=== PATIENT | female | born 1990 | race American Indian/Alaskan Native ===

== ENCOUNTER 2018-08-01 10:06 | Emergency (ER) | payer SELFPAY ==
[2018-08-01 10:23] VITALS: BP 142/92
[2018-08-01] MEDS ORDERED: MOTRIN PO ONE (12:04)
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
== END 2018-08-01 13:14 | disposition left against medical advice (07) ==
LOC: ED 10:06
DX: S13.4XXA Sprain of ligaments of cervical spine, initial encounter (principal); R51 Headache; Z90.49 Acquired absence of other specified parts of digestive tract; V89.2XXA Person injured in unspecified motor-vehicle accident, traffic, initial encounter; Y93.89 Activity, other specified; Y99.8 Other external cause status; Y92.410 Unspecified street and highway as the place of occurrence of the external cause
CPT/HCPCS: 99282

== ENCOUNTER 2019-05-08 18:23 | Emergency (ER) | payer OTHER ==
[2019-05-08] MEDS ORDERED: REGLAN PO ONE (23:31)
[2019-05-08] MEDS ORDERED: BENADRYL PO ONE (23:31)
[2019-05-08] MEDS ORDERED: TORADOL IM ONE (23:31)
--- NOTE | 2019-05-08 23:34 | Emergency Department Report ---
ED Headache HPI - General Chief Complaint: Headache Stated Complaint: HEADACHE Time Seen by Provider: 05/08/19 22:25 - History of Present Illness Initial Comments: Patient is a 29-year-old female who presents to the emergency Department with complaints of frontal headache that began today. She states she has a history of migraines. pt states this feels like her migraines in the past. She states she took 500 mg of ibuprofen today without much relief. She denies any vision changes, numbness, weakness, nausea, vomiting, photophobia, fever, neck stiffness. She denies any other medical problems. She denies any allergies to medications. She states her PCP is [facility]. Allergies/Adverse Reactions: Allergies No Known Allergies Allergy (Verified 05/08/19 18:25) Home Medications: Ambulatory Orders Cyclobenzaprine [Flexeril] 10 mg PO QHS PRN #10 tablet 08/01/18 Ibuprofen [Motrin] 600 mg PO Q8H PRN #30 tablet 08/01/18 Butalb/Acetaminophen/Caffeine [Fioricet 50-300-40 mg CAP] 1 cap PO Q6HR PRN #10 cap 05/09/19 ED Review of Systems ROS: Stated complaint: HEADACHE Other details as noted in HPI Comment: All other systems reviewed and negative ED Past Medical Hx - Past Medical History Hx Headaches / Migraines: Yes - Surgical History Hx Cholecystectomy: Yes - Social History Smoking Status: Never Smoker Substance Use Type: None - Medications Home Medications: Home Medications Medication Instructions Recorded Confirmed Last Taken Type Cyclobenzaprine [Flexeril] 10 mg PO QHS PRN #10 tablet 08/01/18 Unknown Rx Ibuprofen [Motrin] 600 mg PO Q8H PRN #30 tablet 08/01/18 Unknown Rx Butalb/Acetaminophen/Caffeine 1 cap PO Q6HR PRN #10 cap 05/09/19 Unknown Rx [Fioricet 50-300-40 mg CAP] ED Physical Exam - General Limitations: No Limitations General appearance: alert, in no apparent distress - Head Head exam: Present: atraumatic, normocephalic - Eye Eye exam: Present: normal appearance, PERRL, EOMI - ENT ENT exam: Present: mucous membranes moist - Respiratory Respiratory exam: Present: normal lung sounds bilaterally. Absent: respiratory distress, wheezes, rales, rhonchi, stridor, chest wall tenderness, accessory muscle use, decreased breath sounds, prolonged expiratory - Cardiovascular Cardiovascular Exam: Present: regular rate, normal rhythm, normal heart sounds. Absent: systolic murmur, diastolic murmur, rubs, gallop - Neurological Exam Neurological exam: Present: alert, oriented X3, CN II-XII intact, normal gait, other (normal finger to nose, normal heel to hong, 5/5 strength in the BUE/BLE, equal rug weaver strength, sensation intact, no focal neuro deficit). Absent: motor sensory deficit - Psychiatric Psychiatric exam: Present: normal affect, normal mood - Skin Skin exam: Present: warm, dry, intact ED Course Vital Signs 05/08/19 05/09/19 19:04 00:56 Temperature 98.4 F Pulse Rate 98 H 88 Respiratory 18 17 Rate O2 Sat by Pulse 97 97 Oximetry - Reevaluation(s) Reevaluation #1: 05/09/19 00:50 headache completely resolved status post medication. ED Medical Decision Making - Medical Decision Making Patient is a 29-year-old female who presents to the emergency Department with complaints of frontal headache that began today. She states she has a history of migraines. pt states this feels like her migraines in the past.She states she took 500 mg of ibuprofen today without much relief. She denies any vision changes, numbness, weakness, nausea, vomiting, photophobia, fever, neck stiffness. She denies any other medical problems. She denies any allergies to medications. She states her PCP is [facility]. Headache resolved s/p medications in the ED. no neuro deficits on exam, no neck tenderness, no meningeal signs, PERRL. Will give patient a prescription for Fioricet. advised to take medication as prescribed as needed. Follow up with her primary care doctor in the next 3 days. Return to the emergency room for any new or worsening symptoms Critical care attestation.: If time is entered above; I have spent that time in minutes in the direct care of this critically ill patient, excluding procedure time. ED Disposition Clinical Impression: Headache Qualifiers: Headache type: unspecified Headache chronicity pattern: acute headache Intractability: not intractable Qualified Code(s): R51 - Headache Disposition: -01 TO HOME OR SELFCARE Is pt being admited?: No Does the pt Need Aspirin: No Condition: Stable Instructions: Migraine Headache (ED) Additional Instructions: Take medication as prescribed as needed. Follow up with your primary care doctor in the next 3 days. Return to the emergency room for any new or worsening symptoms Prescriptions: Butalb/Acetaminophen/Caffeine [Fioricet 50-300-40 mg CAP] 1 cap PO Q6HR PRN #10 cap PRN Reason: Headache Referrals: [facility] [Other] - 2-3 Days Forms: Accompanied Note, Work/School Release Form(ED) Time of Disposition: 00:46 Print Language: UKRAINIAN
== END 2019-05-09 00:56 | disposition home or self-care (01) ==
LOC: ED 18:23
DX: G43.909 Migraine, unspecified, not intractable, without status migrainosus (principal); Z90.49 Acquired absence of other specified parts of digestive tract; Z79.899 Other long term (current) drug therapy
CPT/HCPCS: 96372; 99282; J1885